=== PATIENT | male | born 2000 | race African-American/Black ===

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

== ENCOUNTER → 2018-10-08 | Outpatient (REF) | payer OTHER ==
[2018-10-08 23:51] LABS: CHLAMYDIA DNA AMPLIFICATION POSITIVE (NEGATIVE); GC DNA AMPLIFICATION NEGATIVE (NEGATIVE)
== END ==
LOC: M LAB REF 15:39
PROVIDERS: ATTEND Physician Assistant
DX: N39.0 Urinary tract infection, site not specified (principal)

== ENCOUNTER → 2019-07-07 | Outpatient (CLI) | payer OTHER | LOC: M LABSMTC 09:58 | PROVIDERS: ATTEND Family Medicine | DX: Z11.59 Encounter for screening for other viral diseases (principal); Z20.828 Contact with and (suspected) exposure to other viral communicable diseases ==

== ENCOUNTER → 2020-02-16 | Outpatient (CLI) | payer SELFPAY | LOC: M LABSMTC 12:44 | PROVIDERS: ATTEND Pediatrics | DX: Z20.828 Contact with and (suspected) exposure to other viral communicable diseases (principal) ==

== ENCOUNTER 2021-12-12 14:44 | Emergency (ER) | payer OTHER ==
[~2021-12-12] VITALS: Ht 182.9 cm; Wt 81.8 kg
[2021-12-12 14:46] VITALS: BP 134/63
[2021-12-12] MEDS ORDERED: LIDOCAINE 2% MDV 20ML VIAL SC ONE (17:05)
[2021-12-12] MEDS ORDERED: BOOSTRIX/ADACEL VACCINE (DIPHTH/PERTUSS/ACELL/TETANUS) 0.5ML SYR IM ONE (17:05)
[2021-12-12] MEDS ORDERED: DERMABOND TOPICAL SKIN ADHESIVE TOP ONE (17:50)
== END 2021-12-12 18:29 | disposition home or self-care (01) ==
LOC: M ED 14:44
DX: S01.511A Laceration without foreign body of lip, initial encounter (principal); S00.81XA Abrasion of other part of head, initial encounter; W27.1XXA Contact with garden tool, initial encounter; F17.200 Nicotine dependence, unspecified, uncomplicated; Y99.0 Civilian activity done for income or pay; Z23 Encounter for immunization

== ENCOUNTER → 2022-01-16 | Outpatient (REF) | payer OTHER ==
[2022-01-17 10:29] LABS: GC DNA AMPLIFICATION POSITIVE (NEGATIVE)
== END ==
LOC: M LAB REF 08:38
PROVIDERS: ATTEND Physician Assistant
DX: Z11.3 Encounter for screening for infections with a predominantly sexual mode of transmission (principal)

== ENCOUNTER 2023-06-07 23:07 | Inpatient (IN) | payer OTHER ==
[~2023-06-07] VITALS: Ht 182.9 cm; Wt 79.1 kg
[2023-06-08] MEDS ORDERED: HOME MED LIST COMPLETE! XX SCH (00:05)
[2023-06-08 00:47] LABS: HEMATOCRIT 42.2 % (42.0-52.0); HEMOGLOBIN 14.3 g/dl (13.5-17.5); MEAN CORPUSCULAR HEMOGLOBIN 29.5 pg (27.0-33.0); MEAN CORPUSCULAR HGB CONC 33.9 g/dl (32.0-36.5); PLATELET COUNT, AUTOMATED 185 10^3/uL (150-450); RED BLOOD COUNT 4.85 10^6/uL (4.30-6.10); WHITE BLOOD COUNT 10.1 10^3/uL (4.0-10.0)
[2023-06-08 01:09] LABS: ETHYL ALCOHOL (ETHANOL) < 0.003 % (0.000-0.010)
[2023-06-08 01:10] LABS: ALBUMIN 4.2 G/DL (3.2-5.2); ALKALINE PHOSPHATASE 54 U/L (46-116); ALT/SGPT 12 U/L (7.0-40); AST/SGOT 11 U/L (<34); BILIRUBIN,DIRECT 0.2 MG/DL (<0.4); BILIRUBIN,TOTAL 0.6 MG/DL (0.3-1.2); BLOOD UREA NITROGEN 20 MG/DL (9-23); CALCIUM LEVEL 8.7 MG/DL (8.5-10.1); CARBON DIOXIDE LEVEL 30 MMOL/L (20-31); CHLORIDE LEVEL 108 MMOL/L (98-107); CREATININE FOR GFR 1.08 MG/DL (0.70-1.30); GLOMERULAR FILTRATION RATE > 60.0 (>60); GLUCOSE, FASTING 89 MG/DL (60-100); POTASSIUM SERUM 4.3 MMOL/L (3.5-5.1); SALICYLATE LEVEL < 3.0 MG/DL (<30); SODIUM LEVEL 140 MMOL/L (136-145); TOTAL PROTEIN 6.9 G/DL (5.7-8.2)
[2023-06-08 01:12] LABS: THYROID STIMULATING HORMONE 1.538 uIU/ML (0.55-4.78)
[2023-06-08] MEDS: ACETAMINOPHEN TAB 650MG DOSE (2X325MG) PO ONE (01:35)
[2023-06-08 03:19] LABS: AMPHETAMINES LEVEL URINE NEGATIVE (NEGATIVE); BARBITURATES URINE NEGATIVE (NEGATIVE); BENZODIAZEPINES URINE NEGATIVE (NEGATIVE); CANNABINOIDS URINE POSITIVE (NEGATIVE); COCAINE METABOLITE URINE NEGATIVE (NEGATIVE); METHADONE URINE NEGATIVE (NEGATIVE); OPIATES URINE NEGATIVE (NEGATIVE); PHENCYCLIDINE URINE NEGATIVE (NEGATIVE)
[2023-06-08] MEDS ORDERED: MAALOX 30 ML SUSP *UDC PO PRN (15:30)
[2023-06-08] MEDS ORDERED: ACETAMINOPHEN TAB 650MG DOSE (2X325MG) PO PRN (15:30)
[2023-06-08] MEDS ORDERED: MOM 30ML SUSPENSION UDC PO PRN (15:30)
[2023-06-08] MEDS ORDERED: IBUPROFEN 400MG TAB PO PRN (15:30)
[2023-06-08 17:56] VITALS: BP 115/62; TEMP 98.6; O2SAT 98
[2023-06-08] MEDS: traZODone 50 MG TAB PO PRN (20:09)
[2023-06-09 06:31] VITALS: BP 153/84; TEMP 98; O2SAT 97
[2023-06-09] MEDS: LIDOCAINE 5% (LIDODERM) PATCH TD SCH (10:19)
[2023-06-09] MEDS: GABAPENTIN 100 MG CAP PO SCH (10:19)
[2023-06-09] MEDS: INFLUENZA QUADRIVALENT PF VACCINE 0.5ML SYRINGE IM.IMMUN ONE (10:22)
[2023-06-09] MEDS: ACETAMINOPHEN 500 MG TAB PO SCH (12:00)
[2023-06-09] MEDS: CYCLOBENZAPRINE 5MG TABLET PO SCH (13:15)
[2023-06-09] MEDS: IBUPROFEN 400MG TAB PO SCH (13:15)
[2023-06-09] MEDS ORDERED: ACETAMINOPHEN 500 MG TAB PO PRN (13:21)
[2023-06-09] MEDS ORDERED: OLANZapine ORAL DISINTEGRATING TAB 5MG PO PRN (13:30)
[2023-06-09 17:20] VITALS: BP 140/74; TEMP 98.6; O2SAT 99
[2023-06-09] MEDS: DICLOFENAC EPOLAMINE 1.3% PATCH TOP SCH (20:20)
[2023-06-10 06:39] VITALS: BP 101/55; TEMP 97.5; O2SAT 98
[2023-06-10] MEDS: ESCITALOPRAM OXALATE 10 MG TAB (LEXAPRO) PO SCH (11:05)
[2023-06-10 18:23] VITALS: BP 138/75; TEMP 97.6
[2023-06-10] MEDS: diphenhydrAMINE 25MG CAP PO PRN (22:44)
[2023-06-11 06:39] VITALS: BP 133/90; TEMP 97.1; O2SAT 100
[2023-06-11 15:41] VITALS: BP 126/68; TEMP 97.7
[2023-06-12 06:23] VITALS: BP 135/76; TEMP 98.6; O2SAT 100
[2023-06-12] MEDS ORDERED: OLAN5ZYD PO (09:20)
[2023-06-12] MEDS ORDERED: GABA-1171 PO (09:20)
[2023-06-12] MEDS ORDERED: LEXA1TAB PO (09:20)
[2023-06-12] MEDS ORDERED: TRAZ-252 PO (09:20)
[2023-06-12] MEDS ORDERED: DIPH-435 PO (09:20)
[2023-06-12] MEDS ORDERED: CYCL5TAB PO (09:20)
== END 2023-06-12 11:20 | disposition home or self-care (01) | DRG 754 ==
LOC: M ED 23:07 → M ED INP 06-08 15:27 → M PSY 06-08 17:22
PROVIDERS: ADMIT Student in an Organized Health Care Education/Training Program; ATTEND Student in an Organized Health Care Education/Training Program
DX: F32.9 Major depressive disorder, single episode, unspecified (principal); R45.851 Suicidal ideations; F43.10 Post-traumatic stress disorder, unspecified; R91.8 Other nonspecific abnormal finding of lung field; F17.290 Nicotine dependence, other tobacco product, uncomplicated; M54.6 Pain in thoracic spine; Z91.51 Personal history of suicidal behavior; Z81.8 Family history of other mental and behavioral disorders; Z62.810 Personal history of physical and sexual abuse in childhood

== ENCOUNTER 2024-01-29 19:29 | Emergency (ER) | payer OTHER ==
[~2024-01-29] VITALS: Ht 182.9 cm; Wt 80.2 kg
[~2024-01-29 19:29] MED LIST: CYCL5TAB PO; DIPH-435 PO; GABA-1171 PO; LEXA1TAB PO; OLAN5ZYD PO; TRAZ-252 PO
[2024-01-29] MEDS: KETOROLAC 60MG 2ML VIAL IM ONE (20:26)
[2024-01-29] MEDS: PERCOCET 5MG/325MG TAB PO ONE (23:45)
[2024-01-30 00:17] VITALS: BP 125/66; TEMP 98; O2SAT 99
== END 2024-01-30 00:21 | disposition home or self-care (01) ==
LOC: M ED 19:29
DX: S62.015A Nondisplaced fracture of distal pole of navicular [scaphoid] bone of left wrist, initial encounter for closed fracture (principal); Y92.830 Public park as the place of occurrence of the external cause; Y93.9 Activity, unspecified; Y99.9 Unspecified external cause status; F17.290 Nicotine dependence, other tobacco product, uncomplicated; F12.10 Cannabis abuse, uncomplicated; F10.10 Alcohol abuse, uncomplicated; Z79.899 Other long term (current) drug therapy
CPT/HCPCS: 73080; 73090; 73110; 73200; 96372; 99283; J1885

== ENCOUNTER → 2024-02-25 | Outpatient (CLI) | payer OTHER ==
[~2024-02-25] MED LIST changes: -CYCL5TAB PO; +CYCL5TAB4 PO
== END ==
LOC: M SOG 07:58
PROVIDERS: ATTEND Physician Assistant
DX: S62.002D Unspecified fracture of navicular [scaphoid] bone of left wrist, subsequent encounter for fracture with routine healing (principal)